=== PATIENT | male | born 1965 | race Caucasian/White ===

== ENCOUNTER → 2020-04-30 10:34 | Outpatient (CLI) | payer OTHER, SELFPAY ==
--- NOTE | ~2020-04-30 | XR_ITS ---
EXAMINATION: XR foot RT min 3V DATE: 04/30/2020 11:16 INDICATION: Right foot pain TECHNIQUE: Dorsoplantar, lateral, and 2 oblique views of the right foot were obtained. COMPARISON: None. FINDINGS: There is no acute fracture, dislocation, or subluxation. There is a questionable avulsion f racture of the medial malleolus. 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 The soft tissues are unremarkable. IMPRESSION: 1. No acute osseous abnormality. Reviewed, dictated and finalized at location A. [employer] PROGRAM COORDINATOR
== END ==
PROVIDERS: PCP Physician Assistant; Visit Provider Physician Assistant
DX: M79.671 Pain in right foot (principal)
CPT/HCPCS: 73630

== ENCOUNTER 2020-05-14 12:34 | Outpatient (CLI) | payer OTHER, SELFPAY ==
--- NOTE | ~2020-05-14 | XR_ITS ---
. EXAMINATION: XR foot RT min 3V, XR ankle RT min 3V DATE: 05/14/2020 12:52 INDICATION: Right foot and ankle pain TECHNIQUE: 1. Weight bearing anteroposterior, mortise, additional oblique and lateral view of the right ankle we re obtained. 2. Weightbearing dorsoplantar, two oblique and lateral views of the right foot were obtained. COMPARISON: None. FINDINGS: There is hindfoot valgus and pes planus with flattening of the longitudinal plantar arch. No fracture or osteochondral lesion. Mild osteoarthritis at the first metatarsophalangeal joint and at several t arsal metatarsal joints, greatest at the second tarsal metatarsal joint. Very small plantar calcaneal spur. No ankle joint effusion. The soft tissues are unremarkable. IMPRESSION: 1. Hindfoot valgus and pes planus. 2. Mild polyarticular osteoarthritis in the mid and forefoot. Reviewed, dictated and finalized at location A. IMPRESSION: 1. Hindfoot valgus and pes planus. 2. Mild polyarticular osteoarthritis in the mid and forefoot.
== END 2020-05-14 12:35 | disposition home or self-care (01) ==
PROVIDERS: PCP Physician Assistant; Visit Provider Orthopaedic Surgery
DX: M19.071 Primary osteoarthritis, right ankle and foot (principal); M21.41 Flat foot [pes planus] (acquired), right foot
CPT/HCPCS: 73610; 73630